=== PATIENT | female | born 1990 | race Caucasian/White ===

== ENCOUNTER 2022-05-14 16:51 | Outpatient (CLI) | payer OTHER, SELFPAY ==
[2022-05-14 17:27] LABS: Hematocrit 38.2 % (37.0-47.0); Hemoglobin 12.8 g/dL (12.0-15.0); Mean Corpuscular HGB Conc 33.5 g/dl (32-36); Mean Corpuscular Hemoglobin 30.9 pg (26-34); Mean Corpuscular Volume 92.3 fl (80-100); Mean Platelet Volume 9.6 fl (7.4-10.4); Platelet Count Result 273 k/mm3 (150-375); Red Blood Count 4.14 M/mm3 (4.2-5.4); Red Cell Distribution Width 12.6 % (11.5-14.5); White Blood Count 8.1 K/mm3 (4.5-10.0)
[2022-05-14 17:40] LABS: Anion Gap 8 mmol/L (8-16); Blood Urea Nitrogen 17 mg/dL (7-17); Calcium 8.5 mg/dL (8.4-10.2); Carbon Dioxide 26 mmol/L (22-30); Chloride 103 mmol/L (98-107); Estimated Glomerular Filt Rate > 60; Glucose 92 mg/dL (65-110); Potassium 3.3 mmol/L (3.4-5.0); Sodium 137 mmol/L (137-145)
[2022-05-14 17:45] LABS: Iron 91 ug/dL (37-170)
[2022-05-14 17:47] LABS: Prealbumin 31.7 mg/dL (17.6-36.0)
== END 2022-05-14 16:52 | disposition home or self-care (01) ==
LOC: ANHLAB 16:52
PROVIDERS: PCP Family Medicine; Visit Provider Surgery Plastic and Reconstructive Surgery
DX: R63.4 Abnormal weight loss (principal)
CPT/HCPCS: 36415; 80048; 82040; 83540; 84134; 84425; 85027

== ENCOUNTER 2022-06-21 01:22 | Day surgery (SDC) | payer OTHER, SELFPAY ==
[2022-06-17 11:04] VITALS: BMI 27.8
--- NOTE | 2022-06-17 11:09 | PC.NURSE ---
Report to the Outpatient Waiting Room, entrance under the green pavilion located off [facility], at time 6:00 on date 06/21/22. Planned Procedure Time: 7:30. Time changes happen often and if your time is changed the preop area will call you the afternoon before. - You and your visitor will be asked to self-screen and do not enter if you have any COVID symptoms. - We encourage only one visitor and NO visitors under age 16 are allowed at this time. Your visitor will receive communication by the phone number that is given day of service. - The patient visitor is requested to social distance or may leave the building when not with patient due to restrictions. - A mask is OPTIONAL within the hospital. Patients may have clear liquids (water, carbonated beverages, clear teas, apple juice) until 3 hours prior to surgery (4:30) with a maximum of 20 ounces. - No food from midnight until time of surgery Take the following medications with a SIP of water the morning of surgery: NONE Medications to discontinue per physician: VITAMINS Date to take last dose: 06/17/22 Please no make-up, nail somali, hairspray, perfume, deodorant, or body powder the day of surgery. No jewelry (including any body piercings) or valuables the day of surgery, leave them at home. Please take a shower or bath the night before, or the morning of, surgery with an antibacterial soap. Wear comfortable, loose fitting clothing. - Jewelry must be removed prior to entering the operating room. Rings and piercings that are not removed may be cut off. - The hospital will not accept responsibility for valuables. - Please leave all valuables, including medications, at home the day of surgery. If you are going home after surgery, a licensed auto crane driver must drive you home. - NO public transportation without another adult. - We recommend that an adult stay with you for 24 hours following discharge. - We also recommend that you do not drive, make important decision, drink alcoholic beverages, or take any drugs that were not prescribed by your health care provider for at least 24 hours after your discharge time. Follow any additional instructions given to you from your surgeon. If you or anyone in your household have experienced Covid symptoms in the past week, please notify your surgeon or the nurse liaison at the phone number below for possible testing. Telephone instructions given to PT - RICH WAYNE and asked if any additional questions and then verbalized understanding. Patient advised to call surgeon office or pre surgery nurse liaison [phone] if any additional questions.
[2022-06-21] VITALS (8 sets, daily range): BP systolic 129–143; BP diastolic 83–96; PULSE 57–101; RESP 12–18; TEMP 36.3–36.6; O2SAT 95–100
[2022-06-21] MEDS: LACTATED RINGERS 1,000 ML 30 ML IV CONT ×3 (06:30→10:38)
--- NOTE | 2022-06-21 06:34 | ECG_ITS ---
Measurements Intervals Talmage Rate: 67 P: 54 ID: 139 QRS: 32 QRSD: 90 T: 18 QT: 421 QTc: 446 Interpretive Statements SINUS RHYTHM WITH SINUS ARRHYTHMIA BASELINE WANDER- I, II NORMAL ECG NO PREVIOUS ECG AVAILABLE FOR COMPARISON Electronically Signed On 06-21-2022 7:06:25 CDT by Meek Plummer D.O.
--- NOTE | 2022-06-21 06:38 | WPDANESEPPF ---
Anes - Initial Pre Proc Eval Procedure: Operation Date: 06/21/22 07:30 Proposed Procedures p Bilateral Breast Augmentation, - Miko Champagne MD s Bilateral Breast Mastopexy, Excision Bilateral Lateral Breast Tissue - Miko Champagne MD Date/Time: 06/21/22 06:38 Surgeon: Miko Champagne MD Pre Op Diagnosis: micromastia, breast ptosis,local adiposity Patient Data Age: 32 Gender: F Height: 1.63 m Weight: 74.65 kg Last Vital Signs Temp 36.6 C 06/21/22 06:16 Pulse 68 06/21/22 06:16 Resp 16 06/21/22 06:16 BP 132/91 H 06/21/22 06:16 Pulse Ox 100 06/21/22 06:16 O2 Del Method Room Air 06/21/22 06:16 Allergies Allergy/AdvReac Type Severity Reaction Status Date / Time Penicillins Allergy Unknown HIVES Verified 06/21/22 06:09 Home Medications Medication Instructions Recorded Confirmed Type multivitamin 1 tablet PO DAILY 06/17/22 06/21/22 History dextroamphetamine-amphetamine ER 20 mg PO DAILY #31 caps 06/18/22 06/21/22 Rx 20 mg 24hr capsule,extend release (Adderall XR) Patient hx anesthesia problems: none Family hx anesthesia problems: none Results Review: All pre-operative results and documents have been reviewed as part of the pre-operative evaluation. [facility] Past Medical History Medical History Smoking 1/2 pack a day or less Surgical History Surgical History (Updated 06/21/22 @ 06:39 by Merrick Ayala MD) Hx of tonsillectomy Family History Family History Father Cerebrovascular accident Hypertension Diabetes mellitus Mother Hypertension Sibling No problems noted. 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 Gender identity (if verbalized by the patient): Female Spiritual care concerns: No Anes - Eval Final PreProcedure Day of Procedure 06/21/22 06:38 Patient weight: overweight Heart: regular rate and rhythm Lungs: clear to auscultation Airway: Mallampati scale class II Neurological: alert and oriented Last oral intake: >/= 8 hours ASA classification: II Emergent: no Anesthetic plan: proceed Anesthesia type and monitoring: general LMA and standard monitoring Results Review: All pre-operative results and documents have been reviewed as part of the pre-operative evaluation. Informed Consent: The patient's anesthetic plan and its attendant risks and benefits were discussed with the patient/family/POA. Questions were solicited and answers provided to the satisfaction of the patient/family/POA.
--- NOTE | 2022-06-21 06:44 | P.OP_ITS ---
Procedure Note - Detailed Date of Procedure 06/21/22 Pre-op Diagnosis micromastia, breast ptosis,local adiposity Post-op Diagnosis Same Procedure Performed Bilateral augmentation mastopexy with lateral breast tissue excision Surgeon Miko Champagne MD Anesthesia General Findings Inverted T Superior medial pedicle Implants Bilateral Martha Kay SoftTouch Implants 485cc Right - REF# [id number] SN [id number] Left - REF# [id number] SN [id number] Description of Procedure She is here today for bilateral breast augmentation mastopexy. Previously and again today the risks, benefits, alternatives were discussed in extensive detail. I wanted her to be very realistic about the risks involved as well as expectations. We discussed aftercare and what to monitor for. Made sure answered all of her questions to her satisfaction today and consent was obtained. Marked in the preoperative holding area with their verification. The patient was taken to the operating room placed supine on the operating table. Anesthesia was provided by anesthesiology. A surgical time-out was taken. We cleansed the skin and 1% lidocaine and 0.25% Marcaine with epinephrine was used anesthetize as a field block. She was prepped and draped in a standard sterile fashion. Tegaderm nipple Navarro were placed. A 15 blade used to make an incision just superior to the inframammary fold leaving a cusp of de-epithelized tissue at the t junction. Dissection was continued until the chest wall as identified. I incised the pectoralis major along its inferior border and completely released the inferior border leaving the medial border intact. I created a subpectoral pocket in the appropriate dimensions based on our preoperative planning for the implant. I then copiously irrigated with saline solution and verified a strict hemostasis. Next the use a triple antibiotic and Betadine containing solution to irrigate the pocket. I washed my gloves with the triple antibiotic and Betadine solution. We washed the implant immediately upon opening it with this solution and only opened it when we needed it. I used implant funnel and no-touch technique. The implant was introduced into the pocket using the funnel. Having verified positioning of the implant this was closed using 2-0 Vicryl. I tailor tacked the breast into position. Placed her in a sitting position. Verified the nipple-areolar location based on preoperative planning as well as intraoperative observations and measurements in full agreement. Also verfied the lateral breast to be excised. She was placed supine. I de-epithelialized the pedicle. I then removed the inferior central portion of the breast need making sure the implant was well protected. I elevated medial and lateral tissue flaps as well for planned closure. Also excised the lateral breast skin laxity. I closed along the IMF with 2-0 Stratafix. Along the vertical with 2-0 PDS. I closed around the Familia with 3-0 strata fix. 3-0 Monocryl along the vertical. 3-0 Stratafix along the IMF. I finally closed everything with running watkins bcuticular 4-0 Monocryl and tissue glue. Fluffs and surgical bra were placed. Estimated Blood Loss 50 Drains No Packing No Pathology None sent Complications No immediate complications Condition Stable Disposition PACU
--- NOTE | 2022-06-21 07:03 | WPDHPUPDATE1 ---
History and Physical Update Update Date/Time: 06/21/22 07:03 History and Physical has been reviewed, including an updated exam of the patient. There are NO changes in the patient's condition. Risks, benefits, and alternatives have been discussed and questions answered. Patient agrees to proceed with procedure.
[2022-06-21] MEDS: SCOPOLAMINE 1.5 MG PATCH TRANSDERM (07:21)
[2022-06-21 07:30] LABS: Urine Cotinine NEGATIVE
[2022-06-21] MEDS: ceFAZolin 2 GM/D5W 50 ML 2 GM/50 ML BAG IVPB (07:39)
[2022-06-21] MEDS: TRANEXAMIC ACID 1,000MG/ISO100 1,000 MG/100 ML BAG 200 MG IVPB (07:49)
[2022-06-21] MEDS: BUPIVACAINE/EPINEPHRINE 0.25% 50 ML VIAL 30 ML INFILTRATE (07:50)
[2022-06-21] MEDS: NACL 0.9% IRRIG POUR BOTTLE 900 ML, GENTAMICIN SULFATE INJ 160 MG, CLINDAMYCIN PHOS INJ... IRRIGATION (08:08)
--- NOTE | 2022-06-21 08:28 | SUR.OPER ---
right breast implant exp 2026-07-30, lot [id number] [facility] 484cc left breast implane exp 2026-10-04, lot [id number] [facility] 485cc
[2022-06-21] MEDS: LACTATED RINGERS IRRIG 1,000 ML, LIDOCAINE HCL 1% LOCAL INJ 50 ML, EPINEPHrine HCL INJ ... INFILTRATE (08:52)
[2022-06-21] MEDS: fentaNYL CITRATE INJ (*CRX) 100 MCG/2 ML VIAL 25 MCG IV PUSH (10:38)
[2022-06-21] MEDS: oxyCODONE HCL (*CRX) 5 MG TAB IR PO (11:32)
== END 2022-06-21 11:35 | disposition home or self-care (01) ==
PROVIDERS: PCP Family Medicine; Visit Provider Surgery Plastic and Reconstructive Surgery
PROC: (CPT 19316; principal; 2022-06-21 07:30)
PROC: (CPT 19316; 2022-06-21 07:30)
DX: Z41.1 Encounter for cosmetic surgery (principal); N64.81 Ptosis of breast; E65 Localized adiposity; F12.90 Cannabis use, unspecified, uncomplicated
CPT/HCPCS: 19316; 19325; 80307; 93005; A9270; J0171; J0690; J1100; J1170; J1580; J2250; J2405; J2704; J3010; J7120

== ENCOUNTER 2024-05-18 08:32 | Outpatient (CLI) | payer OTHER, SELFPAY ==
[2024-05-18 09:25] LABS: Basophils Percent Auto 0.6 % (0.2-1.2); Eosinophils Absolute Auto 0.1 K/mm3 (0-0.3); Eosinophils Percent Auto 1.1 % (0-4.4); Hematocrit 41.4 % (37.0-47.0); Hemoglobin 14.2 g/dL (12.0-15.0); Immature Granulocyte Absolute 0.02 K/mm3 (0.00-0.031); Immature Granulocyte Percent A 0.3 % (0-0.5); Lymphocytes Absolute Auto 1.91 K/mm3 (0.9-3.2); Lymphocytes Percent Auto 26.6 % (18.3-44.2); Mean Corpuscular HGB Conc 34.3 g/dl (32-36); Mean Corpuscular Hemoglobin 31.6 pg (26-34); Mean Corpuscular Volume 92.2 fl (80-100); Mean Platelet Volume 9.6 fl (7.4-10.4); Monocytes Absolute Auto 0.6 K/mm3 (0.1-0.6); Monocytes Percent Auto 8.4 % (2.6-8.5); Neutrophils Absolute Auto 4.5 K/mm3 (1.3-6.7); Platelet Count Result 261 k/mm3 (150-375); Red Blood Count 4.49 M/mm3 (4.2-5.4); Red Cell Distribution Width 11.8 % (11.5-14.5); White Blood Count 7.2 K/mm3 (4.5-10.0)
[2024-05-18 09:35] LABS: Anion Gap 11 mmol/L (4-12); Blood Urea Nitrogen 15 mg/dL (7-17); Carbon Dioxide 27 mmol/L (22-30); Chloride 98 mmol/L (98-107); Estimated Glomerular Filt Rate > 60; Sodium 136 mmol/L (137-145)
[2024-05-18 09:36] LABS: Alanine Aminotransferase 18 U/L (6-35); Albumin Level 4.6 g/dL (3.5-5.1); Alkaline Phosphatase 49 U/L (38-126); Aspartate Amino Transferase 26 U/L (14-36); Calcium 8.8 mg/dL (8.4-10.2); Cholesterol 137 mg/dL (0-200); Glucose 90 mg/dL (65-110); HDL Direct 70 mg/dL; Triglycerides 80 mg/dL (<150)
[2024-05-18 09:46] LABS: LDL Cholesterol Direct 49 mg/dL
[2024-05-18 10:06] LABS: Thyroid Stimulating Hormone 0.965 uIU/mL (0.465-4.680)
[2024-05-18 10:36] LABS: Vitamin D 25 Hydroxy 38.6 ng/mL
== END 2024-05-18 08:33 | disposition home or self-care (01) ==
PROVIDERS: PCP Family Medicine
DX: E55.9 Vitamin D deficiency, unspecified (principal); Z13.0 Encounter for screening for diseases of the blood and blood-forming organs and certain disorders involving the immune mechanism; Z13.1 Encounter for screening for diabetes mellitus; Z13.220 Encounter for screening for lipoid disorders; Z13.29 Encounter for screening for other suspected endocrine disorder
CPT/HCPCS: 36415; 80053; 80061; 82306; 84443; 85025

== ENCOUNTER 2024-06-09 10:21 | Outpatient (CLI) | payer OTHER, SELFPAY ==
[2024-06-09 10:54] LABS: Anion Gap 9 mmol/L (4-12); Blood Urea Nitrogen 16 mg/dL (7-17); Calcium 9.4 mg/dL (8.4-10.2); Carbon Dioxide 26 mmol/L (22-30); Chloride 102 mmol/L (98-107); Estimated Glomerular Filt Rate > 60; Glucose 98 mg/dL (65-110); Potassium 4.4 mmol/L (3.4-5.0); Sodium 137 mmol/L (137-145)
== END 2024-06-09 10:22 | disposition home or self-care (01) ==
LOC: ANHLAB 10:25
PROVIDERS: PCP Family Medicine
DX: E87.6 Hypokalemia (principal)
CPT/HCPCS: 36415; 80048

== ENCOUNTER 2025-02-09 14:32 | Emergency (ER) | payer OTHER, SELFPAY ==
[2025-02-09 14:52] VITALS: BP 182/104; PULSE 61; RESP 18; TEMP 36.7; O2SAT 100
== END 2025-02-09 17:05 | disposition left against medical advice (07) ==
LOC: ANHED 16:39
PROVIDERS: PCP Family Medicine
DX: R10.11 Right upper quadrant pain (principal)
CPT/HCPCS: 99199

== ENCOUNTER 2025-02-17 15:55 | Outpatient (CLI) | payer OTHER, SELFPAY ==
--- OUTSIDE RECORDS SUMMARY | 2025-02-17 15:58 | XMS_ITS | Clinical Summary ---
Author Organization [facility] Address [address] [place] [address] Phone Care Team Providers Care Transitional Studies Instructor Name Role Phone Provider, None Primary Care Provider Unavailabl e Allergies Active Allergy Reactions Criticality Noted Date Comments Penicillins Hives 03/14/2019 Social History Tobacco Use Types Packs/Day Years Used Date Smoking Tobacco: Some Days Cigarettes Smokeless Tobacco: Never Comments Unknown Sex and Gender Information Value Date Recorded Sex Assigned at Not on file Legal Sex Female 9:04 AM CDT Gender Identity Not on file Sexual Orientation Not on file Last Filed Vital Signs Vital Sign Reading Time Taken Comments Blood Pressure 134/85 03/14/2019 9:36 AM CDT Pulse 112 03/14/2019 9:21 AM CDT Temperature 36.5 C (97.7 F) 03/14/2019 9:21 AM CDT Respiratory Rate 18 03/14/2019 9:21 AM CDT Oxygen Saturation 99% 03/14/2019 9:21 AM CDT Inhaled Oxygen Concentration - - Weight 110.6 kg (243 lb 13.3 oz) 03/14/2019 9:10 AM CDT Height 162.6 cm (5' 4) 03/14/2019 9:06 AM CDT Body Mass Index 41.85 03/14/2019 9:06 AM CDT Plan of Treatment Health Maintenance Due Date Last Done Comments Hepatitis C Virus (HCV) Screening 1992 TdaP Immunization 1992 Hepatitis B Immunization (1 of 3 - 19+ 3-dose series) 02/28/2011 Pap Smear 02/28/2013 Cervical Cancer Screening (CCS) 02/28/2022 HPV/Cotest 02/28/2022 Influenza Immunization (#1) 2024 SARS-COV-2 Immunization ( season) 2024 11/21/2020, 10/30/2020 Respiratory Syncytial Virus (RSV) Immunization (Adult) (1 - 1-dose 75+ series) 02/28/2067 Meningococcal Immunization (ACWY) Aged Out No longer eligible b ased on patient's age to complete this topic Pneumococcal Immunization Combined Aged Out No longer eligible b ased on patient's age to complete this topic Rotavirus Immunization Aged Out No lo nger eligible based on patient's age to complete this topic Insurance MEDICAID [employer] Care Teams Transitional Studies Instructor Relationship Specialty Start Date End Date Provider, None [place] PCP - General 03/14/19
--- OUTSIDE RECORDS SUMMARY | 2025-02-17 15:59 | XMS_ITS | Clinical Summary ---
Author Organization [facility] Address [address] [place] [address] Care Team Providers Care Cat Sitter Name Role Phone Marquez Meneses MD Primary Care Provider [phone] Allergies Active Allergy Reactions Criticality Noted Date Comments Penicillins Hives High 05/21/2019 Medications amphetamine-dextr oamphetamine XR (ADDERALL XR) 30 MG 24 hr capsule Take 1 capsule (30 mg total) by mouth every morning. 05/01/20 21 Active metoprolol succinate ER (TOPROL-XL) 25 MG 24 hr tablet Take 1 tablet (25 mg total) by mouth daily. Active traZODone (DESYREL) 50 MG tablet 1 tablet (50 mg total) nightly at bedtime. Active hydrOXYzine (ATARAX) 10 MG tablet Take 1 tablet (10 mg total) by mouth 3 (three) times daily as needed for Anxiety. Active HYDROcodone-aceta minophen (NORCO) 5-325 MG tabletIndications :Acute Pain < 7 Day Supply Take 1 tablet by mouth every 4 (four) hours as needed. Indication s: Acute Pain < 7 Day Supply 15 tablet 02/12/20 25 Active losartan-hydroCHL OROthiazide (HYZAAR) 100-12.5 MG tablet Take 1 tablet by mouth daily. 30 tablet 02/12/20 25 Active NIFEdipine XL (ADALAT CC) 60 MG 24 hr tablet Take 1 tablet (60 mg total) by mouth daily for 30 days. 30 tablet 02/13/20 25 025 Active ondansetron (ZOFRAN-ODT) 4 MG disintegrating tablet Take 1 tablet (4 mg total) by mouth every 8 (eight) hours as needed for Nausea. 20 tablet 03/03/20 22 025 Discontinued losartan (COZAAR) 100 MG tablet Take 1 tablet (100 mg total) by mouth daily. 025 Discontinued(St op Taking at Discharge) meclizine (ANTIVERT) 25 MG tablet Take 2 tablets (50 mg total) by mouth 3 (three) times daily as needed. 20 tablet 01/13/20 25 025 Discontinued diazePAM (VALIUM) 2 MG tabletIndications :Vertigo Take 1 tablet (2 mg total) by mouth every 6 (six) hours as needed for Anxiety. 10 tablet 01/13/20 025 Discontinued NIFEdipine XL (ADALAT CC) 30 MG 24 hr tablet Take 1 tablet (30 mg total) by mouth daily for 30 days. 30 tablet 02/12/20 025 Discontinued(St op Taking at Discharge) Active Problems Problem Noted Date Diagnosed Date Abdominal pain 02/09/2025 Symptomatic cholelithiasis 02/09/2025 HBP (high blood pressure) 08/02/2019 Preeclampsia ([facility]) 07/29/2019 Resolved Problems Problem Noted Date Diagnosed Date Resolved Date (spontaneous vaginal delivery) ([facility]) 9 08/02/2019 ([facility]) 07/28/2019 08/02/20 19 Encounters Date Type Department Care Team Description 02/10/2025 10:08 AM CDT Anesthesia Event [facility] [address] [place] [address] Sarah Alfaro CRNA Rani, Swaroop, MD 02/10/2025 10:00 AM CDT - 02/10/2025 12:15 PM CDT Surgery [facility] [address] [place] [address] Kyrie Dunbar DO LAPAROSCOPIC CHOLECYSTECTOMY 02/09/2025 5:01 PM CDT - 02/11/2025 4:01 PM CDT Hospital Encounter [facility] [address] [place] [address] Dunbar, Sharla C, MD Diane Pressley MD Harris, Michael, MD Helmholt, Jennifer, NP Abdominal Pain Discharge Disposition: Home or Self Care (Routine Discharge) 02/09/2025 Travel 01/12/2025 4:53 PM CDT - 01/12/2025 7:48 PM CDT Emergency [facility] Emergency Room [address] [place] [address] Maya Batres MD Hypertension Discharge Disposition: Home or Self Care (Routine Discharge) from Last 3 Months Immunizations Immunization Administration Dates Next Due Influenza Adult (Generic) 06/07/2019 Tdap (Generic) 06/14/2019 Family History Medical History Relation Comments None Brother Hypertension Father Stroke Father Hypertension Mother None Son Relation Status Comments Brother Alive Father Alive Mother Alive Son Alive Social History Tobacco Use Types Packs/Day Years Used Date Smoking Tobacco: Former Electronic Cigarettes Quit: 03/2019 Smokeless Tobacco: Never Tobacco Cessation:Counseling Given: Yes Alcohol Use Standard Drinks/Week Comments No 0 (1 standard drink = 0.6 oz pur e alcohol) [facility] Utilities Answer Date Recorded In the past 12 months has e [email or web address], gas, oil, or water [employer] threatened to shut off services in your home? No 02/09/2025 Humiliation, Afraid, Rape, and Kick questionnair e Answer Date Recorded Within the last year, have y ou been afraid of your partner or ex-partner? No 02/09/2025 Within the last year, have y ou been humiliated or emotionally abused in other ways by your partner or ex-partner? No Within the last year, have y ou been kicked, hit, slapped, or otherwise physically hurt by your partner or ex-partner? No 02/09/2025 Within the last year, have y ou been raped or forced to have any kind of sexual activity by your partner or ex-partner? No 02/09/2025 AUDIT-C Answer Date Recorded Q1: How often do you have a drink containing alcohol? 4 or more times a week 02/09/2025 Q2: How many drinks containi ng alcohol do you have on a typical day when you are drinking? 1 or 2 Frequency of Binge Drinking Not on file 01/17 Overall Financial Resource Strain (CARDIA) Answe r Date Recorded How hard is it for you to pa y for the very basics like food, housing, medical care, and heating? Not hard at all 02/09/2025 Hunger Vital Sign Answer Date Recorded Within the past 12 months, y ou worried that your food would run out before you got the money to buy more. Never true 02/10/20 Within the past 12 months, t he food you bought just didn't last and you didn't have money to get more. Never true 02/09/2025 PRAPARE - Transportation Answer Date Re corded In the past 12 months, has l ack of transportation kept you from medical appointments or from getting medications? No 01/17 In the past 12 months, has l ack of transportation kept you from meetings, work, or from getting things needed for daily living? No 02/09/2025 Housing Stability Vital Sign Answer Zaheer e Recorded In the last 12 months, was t here a time when you were not able to pay the mortgage or rent on time? No 02/09/2025 In the past 12 months, how m any times have you moved where you were living? 1 02/09/2025 At any time in the past 12 m [facility], were you homeless or living in a snf (including now)? No 02/09/2025 Comments No Sex and Gender Information Value Date Recorded Sex Assigned at Female 01/12/2025 4:51 PM CDT Legal Sex Female 8:08 PM CDT Gender Identity Not on file Sexual Orientation Not on file Travel History Travel Start Travel End [place] 01/25/2025 02/09/2025 Last Filed Vital Signs Vital Sign Reading Time Taken Comments Blood Pressure 137/90 02/11/2025 2:40 PM CDT RN notified Pulse 73 02/11/2025 7:16 AM CDT Temperature 36.2 C (97.2 F) 02/11/2025 7:16 AM CDT Respiratory Rate 18 02/11/2025 7:16 AM CDT Oxygen Saturation 100% 02/11/2025 7:1 6 AM CDT Inhaled Oxygen Concentration - - Weight 72.6 kg (160 lb 0.9 oz) 02/11/20 5:00 AM CDT Height 162.6 cm (5' 4) 02/09/2025 8:32 PM CDT Body Mass Index 27.47 02/09/2025 8:32 PM CDT Plan of Treatment Upcoming Encounters Date Type Department Care Team (Late st Contact Info) Description 03/03/2025 11:45 AM CDT Office Visit [facility] [address], [address] [place] [address] Kyrie Dunbar, DO [facility] [address] [address] Health Maintenance Due Date Last Done Comments Cervical Cancer Screening Pa p Smear (Age 30 to 64) Every 3 Years 1992 Annual Physical 02/28/1995 Hepatitis C 02/28/2010 Hepatitis B Vaccines (1 of 3 - 19+ 3-dose series) 02/28/2011 Cervical Cancer Screening Pa p with HPV Testing (Age 30 to 64) Every 5 Years 02/28/2022 Cervical Cancer Screening with HPV 02/28/2022 COVID-19 Vaccine (1 - 2023-2 5 season) 2024 DTaP, Tdap and Td Vaccines ( 2 - Td or Tdap) 06/14/2029 06/14/2019 HPV Vaccines Aged Out No longer eligi ble based on patient's age to complete this topic Meningococcal B Vaccine Aged Out No l onger eligible based on patient's age to complete this topic Meningococcal Vaccine Aged Out No gurwinder tara eligible based on patient's age to complete this topic Pneumococcal Vaccine: Pediat rics (0 to 5 Years) and At-Risk Patients (6 to 49 Years) Aged Out No longer eligi ble based on patient's age to complete this topic RSV Immunizations Under 20 Months Aged Out No longer eligible based on patient's age to complete this topic Goals Goal Patient Goal Type Associated Problems Recent Progress Patient-Stated? Author Patient will return to prior living situation and remain independent in ADLs upon discharge from hospital Lifestyle No Estella Ramirez, awake overnight counselor Procedure Name Priority Date/Time Associated Diagnosis Comments POTASSIUM, SERUM TIMED 02/11/2025 1:16 PM CDT MAGNESIUM Routine 02/11/2025 5:15 AM CDT COMPREHENSIVE METABOLIC PANEL Routine 02/11/2025 5:15 AM CDT CBC W/DIFF AUTOMATED Routine 02/11/2025 5:15 AM CDT LAPAROSCOPIC CHOLECYSTECTOMY 02/10/2025 10:07 AM CDT Symptomatic cholelithiasis HEMOGLOBIN, GLYCOSYLATED Routine 02/10/2025 5:14 AM CDT LIPID PANEL Routine 02/10/2025 5:14 AM CDT THYROID STIM HORMONE TSH Routine 02/10/2025 5:14 AM CDT MAGNESIUM Routine 02/10/2025 5:14 AM CDT COMPREHENSIVE METABOLIC PANEL Routine 02/10/2025 5:14 AM CDT PARTIAL THROMBOPLASTIN TIME,PTT Routine 02/10/2025 5:14 AM CDT PROTHROMBIN TIME, VENOUS Routine 02/10/2025 5:14 AM CDT CBC W/DIFF AUTOMATED Routine 02/10/2025 5:14 AM CDT PATHOLOGY Routine 02/10/2025 12:[address] ABD+PEL W CON STAT 02/09/2025 6:23 PM CDT TEST URINE STAT 02/09/2025 5:22 PM CDT URINALYSIS, AUTO, COMPLETE STAT 02/09/2025 5:22 PM CDT LIPASE STAT 02/09/2025 5:10 PM CDT COMPREHENSIVE METABOLIC PANEL STAT 02/09/2025 5:10 PM CDT CBC W/DIFF AUTOMATED STAT 02/09/2025 5:10 PM CDT CTA HEAD+NECK STAT 01/12/2025 6:[address] HEAD WO CON STAT 01/12/2025 6:40 PM CDT URINALYSIS, AUTO, COMPLETE STAT 01/12/2025 5:41 PM CDT PRO-BRAIN NATRIURETIC PEPTIDE STAT 01/12/2025 5:25 PM CDT TROPONIN, QUANT STAT 01/12/2025 5:25 PM CDT COMPREHENSIVE METABOLIC PANEL STAT 01/12/2025 5:25 PM CDT CBC W/DIFF AUTOMATED STAT 01/12/2025 5:25 PM CDT ECG 12-LEAD Routine 01/12/2025 5:06 PM CDT from Last 3 Months Results * POTASSIUM, SERUM (02/11/2025 1:16 PM CDT) Pathologist [facility] POTASSIUM S/P/B 3.9 3.5 - 5.1 MMOL/L 02/11/2025 1:34 PM CDT [facility] 02/11/2025 1:16 PM CDT Sharla Nation [facility] Final Resul t [facility] [address] [place] [address], [place] [phone] * (ABNORMAL) COMPREHENSIVE METABOLIC PANEL (02/11/2025 5:15 AM CDT) Only the most recent of4 resultswithin the time period is included. GLUCOSE 105(H) 70 - 99 MG/DL 02/11/2025 7:19 AM [facility] BUN 6(L) 7 - 18 MG/DL 02/11/2025 7:19 AM [facility] CREATININE S/P/B 0.62 0.55 - 1.02 MG/DL 02/11/2025 7:19 AM [facility] SODIUM S/P/B 130(L) 136 - 145 MMOL/L 02/11/2025 7:19 AM [facility] POTASSIUM S/P/B 3.0(LL) 3.5 - 5.1 MMOL/L 02/11/2025 7:19 AM [facility] Comment: Critical Result(s) Called at: 07:17:46 on 02/11/2025 by: Jess Cagle to and read back by:DONOVAN BENZ CHLORIDE S/P/B 95(L) 100 - 108 MMOL/L 02/11/2025 7:19 AM [facility] CO2 25.9 21 - 32 MMOL/L 02/11/2025 7:19 AM [facility] CALCIUM S/P/B 8.9 8.5 - 10.1 MG/DL 02/11/2025 7:19 AM [facility] BILIRUBIN TOTAL S/P/B 1.0 0.2 - 1.2 MG/DL 02/11/2025 7:19 AM [facility] TOTAL PROTEIN S/P/B 7.2 6.4 - 8.2 G/DL 02/11/2025 7:19 AM [facility] ALBUMIN S/P/B 4.1 3.4 - 5.0 G/DL 02/11/2025 7:19 AM [facility] AST 45(H) 15 - 37 U/L 02/11/2025 7:19 AM [facility] ALT 66(H) 14 - 55 U/L 02/11/2025 7:19 AM CDT [facility] ALKALINE PHOSPHATASE S/P/B 55 50 - 136 U/L 02/11/2025 7:19 AM CDT [facility] ANION GAP 9.1 5 - 15 MMOL/L 02/11/2025 7:19 AM T [facility] BUN CREATININE RATIO 9.7 6 - 26 02/11/2025 7:19 AM T [facility] A/G RATIO 1.3 1.0 - 2.0 RATIO 02/11/2025 7:19 AM T [facility] GFR ESTIMATE >90 >90 ML/MIN/1.7 3 M2 02/11/2025 7:19 AM T [facility] Comment: NOTE: eGFR is not calculated for patients <18 years of age. This is an estimated GFR calculation using the new CKD EPI creatinine equation without race and so does not require a correction factor for race. This estimated GFR should not be used for calculating drug doses. 02/11/2025 5:15 AM CDT Kyrie Dunbar DO LABORATORY Final Result [facility] [address] [place] [address], * (ABNORMAL) CBC W/DIFF AUTOMATED (02/11/2025 5:15 AM CDT) Only the most recent of4 resultswithin the time period is included. WBC 10.15 4.4 - 11.0 x10'3/uL 02/11/2025 6:41 AM CDT [facility] RBC 4.50 4.50 - 5.10 x10'6/uL 02/11/2025 6:41 AM CDT [facility] HGB 14.3 12.3 - 15.3 G/DL 02/11/2025 6:41 AM T [facility] HCT 40.5 35.9 - 44.6 % 02/11/2025 6:41 AM T [facility] MCV 90.0 80.0 - 96.0 FL 02/11/2025 6:41 AM T [facility] MCH 31.8(H) 25.3 - 30.9 PG 02/11/2025 6:41 AM T [facility] MCHC 35.3(H) 31.0 - 34.1 G/DL 02/11/2025 6:41 AM T [facility] RDW 11.7(L) 12.4 - 15.1 % 02/11/2025 6:41 AM [facility] PLT 239 151 - 353 x10'3/uL 02/11/2025 6:41 AM [facility] MPV 9.7 9.6 - 12.0 FL 02/11/2025 6:41 AM T [facility] RBC MORPHOLOGY NORMAL 02/11/2025 6:41 AM [facility] PLT MORPH. NORMAL 02/11/2025 6:41 AM [facility] WBC MORPHOLOGY NORMAL 02/11/2025 6:41 AM T [facility] LYMPHOCYTES % 24.6 15.8 - 45.0 % 02/11/2025 6:41 AM T [facility] NEUTROPHILS % 64.4 42.1 - 71.9 % 02/11/2025 6:41 AM T [facility] MONOCYTES % 10.2 5.7 - 12.5 % 02/11/2025 6:41 AM T [facility] EOSINOPHILS 0.2 0.0 - 5.6 % 02/11/2025 6:41 AM CDT [facility] BASOPHILS 0.2 0.0 - 1.3 % 02/11/2025 6:41 AM CDT [facility] ABS. NEUTROPHILS 6.53(H) 1.40 - 6.00 x10'3/uL 02/11/2025 6:41 AM CDT [facility] IMMATURE GRANS % 0.4 0.0 - 0.5 % 02/11/2025 6:41 AM CDT [facility] ABS. LYMPHOCYTES 2.50 0.80 - 4.70 x10'3/uL 02/11/2025 6:41 AM CDT [facility] 02/11/2025 5:15 AM CDT us Kyrie Dunbar DO LABORATORY Final Result Performing Organization Address City/[facility]/ZIP Co de Phone Number [facility] [address] [place] [address], [place] [phone] * MAGNESIUM (02/11/2025 5:15 AM CDT) Only the most recent of2 resultswithin the time period is included. MAGNESIUM 1.8 1.8 - 2.4 MG/DL 02/11/2025 7:19 AM CDT [facility] 02/11/2025 5:15 AM CDT Kyrie Dunbar DO LABORATORY Final Result [facility] [address] [place] [address], [place] [phone] * HEMOGLOBIN, GLYCATED (02/10/2025 5:14 AM CDT) HGB A1C 5.1 <5.7 % 02/10/2025 6:39 AM CDT [facility] Comment: INCREASED RISK OF DIABETES <5.7% NON-DIABETES 5.7-6.4% INCREASED RISK FOR FUTURE DIABETES > OR = 6.5 CONSISTENT WITH DIABETES STANDARDS OF MEDICAL CARE IN DIABETES-2010 DIABETES CARE, 33(SUPP 1): S1-S61,2009 ESTIMATED AVG GLUCOSE 100 mg/dL 02/10/2025 6:39 AM CDT [facility] 02/10/2025 5:14 AM CDT us Diane Pressley MD LABORATORY Final Result [facility] [address] [place] [address], [place] [phone] * PARTIAL THROMBOPLASTIN TIME,PTT (02/10/2025 5:14 AM CDT) PTT 34.7 25.1 - 36.5 SEC 02/10/2025 6:07 AM CDT [facility] 02/10/2025 5:14 AM CDT us Diane Pressley MD LABORATORY Final Result Performing Organization Address City/[facility]/ZIP Co de Phone Number [facility] [address] [place] [address], [place] [phone] * (ABNORMAL) PROTHROMBIN TIME, VENOUS (02/10/2025 5:14 AM CDT) PROTIME 13.3(H) 9.1 - 12.4 SEC 02/10/2025 6:07 AM CDT [facility] INR 1.2 02/10/2025 6:07 AM CDT [facility] Comment: Recommend INR ranges for Oral Anticoagulant Therapy: Mechanical Cardiac Values 2.5-3.5 All others indication 2.0-3.0 02/10/2025 5:14 AM CDT Diane Pressley MD LABORATORY Final Result [facility] [address] [place] [address], [place] [phone] * LIPID PANEL (02/10/2025 5:14 AM CDT) CHOLESTEROL 118 <200.0 MG/DL 02/10/2025 6:35 AM CDT [facility] TRIGLYCERIDES 70 <150 MG/DL 02/10/2025 6:35 AM CDT [facility] HDL 55 >40.0 MG/DL 02/10/2025 6:35 AM T [facility] LDL (CALCULATED) 49 <100 MG/DL 02/11/20 6:35 AM T [facility] Comment:CALCULATED USING THE FRIEDEWALD EQUATION NON HDL CHOLESTEROL 63 <130 MG/DL 02/10 6:35 AM T [facility] CHOL/HDL RATIO 2.1 0.0 - 4.5 02/10/2025 6:35 AM T [facility] VLDL CALCULATION 14 5 - 55 MG/DL 02/10/2025 6:35 AM T [facility] LIPID INTERPRETATION 02/10/2025 6:35 AM T [facility] Comment: [facility] CONCENSUS REPORT RECOMMENDATIONS: ADULT CHILD LOW RISK: CHOLESTEROL <200 <170 TRIGLYCERIDE <150 --- HDL >=60 --- LDL <100 <110 BORDERLINE: CHOLESTEROL 200-239 170-199 TRIGLYCERIDE 150-199 --- HDL 40-59 --- LDL 100-159 110-129 HIGH RISK: CHOLESTEROL >=240 >=200 TRIGLYCERIDE >=200 --- HDL <40 --- LDL >=160 >=130 02/10/2025 5:14 AM CDT Diane Pressley MD LABORATORY Final Result [facility] [address] [place] [address], [place] [phone] * THYROID STIM HORMONE, TSH (02/10/2025 5:14 AM CDT) TSH 2.428 0.358 - 3.74 uIU/ML 02/10/2025 7:05 AM CDT [facility] Comment: HIGH DOSES OF BIOTIN MAY INTERFERE WITH THIS TEST RESULT. CORRELATION TO CLINICAL HISTORY AND PRESENTATION RECOMMENDED. 02/10/2025 5:14 AM CDT Diane Pressley MD LABORATORY Final Result Performing Organization Address City/[facility]/ZIP Co de Phone Number [facility] [address] [place] [address], [place] [phone] * Pathology (02/10/2025 12:00 AM CDT) PATHOLOGY [facility] Department of Laboratory Medicine [address] [place] [address] , extension [phone] Pathology Report Surgical Pathology Report Name: MARY WAYNE Specimen #: [id number] Age: 7 1990 (Age: 34) Location: [id number] Sex: F Procedure Date: 02/10/2025 Hospital #: [id number] Date Received: 02/11/2025 Date Reported: 02/14/2025 Provider: SHARLA NATION [facility] Source: Gallbladder Clinical History: Symptomatic cholelithiasis. FINAL DIAGNOSIS: Gallbladder, cholecystectomy: - Chronic cholecystitis. - Cholelithiasis. Gross Description: Received in formalin, labeled with a patient label and as gallbladder is a 11.0 x 2.5 x 2.0 cm gallbladder with a green-cervantes serosa. The cystic duct has a diameter of 0.2 cm and does not appear patent. It is contorted and there is a multifaceted brown stone that is 0.8 cm lodged at the base. The gallbladder is opened to reveal dark green material and multiple multifaceted brown stones that are 4.0 x 4.0 x 2.0 cm in aggregate. The gallbladder is lined by a patchy flattened green-brown mucosa that exhibits the indentation fenton that are consistent with the shape and size of the stones. No mass lesions or polyps are grossly identified. On cut section the gallbladder wall has a thickness of 0.2 cm. [employer] tissue to include the cystic duct margin is submitted in cassette 1. Gross examination (when applicable), interpretation, and sign out were performed at [facility], [address] [place] [address], [place] [address]. Electronically Signed Out DIAZ PLASCENCIA MD [facility] TISSUE GALLBLADDER STRUCTURE / Unknown 02/10/2025 10:31 AM CDT us Kyrie Dunbar DO PATHOLOGY/CYTOLOGY ORDERABLES Final Result [facility] [address] [place] [address], [id number] * CT ABD+PEL W IV CON ONLY (02/09/2025 6:23 PM CDT) Anatomical Region Laterality Modality Abdomen Computed Tomogra phy 02/09/2025 6:28 PM CDT Impressions 02/09/2025 6:38 PM CDT IMPRESSION: 1. No evidence of appendicitis or other acute GI tract abnormality identified. 2. Cholelithiasis without evidence of cholecystitis. 3. Mild bile duct dilatation, nonspecific. Referred By: Interpreted By: Christopher Harman MD, 02/09/2025 6:28 PM Narrative 02/09/2025 6:38 PM CDT [facility] [address] [place] [address] EXAMINATION: CT ABD+PEL W CON CLINICAL HISTORY: Abdominal pain COMPARISON: None DATE/TIME: 02/09/2025 6:20 PM TECHNIQUE: Multiplanar CT images of the abdomen and pelvis were obtained. IV contrast: uneventful intravenous administration of 75 mL Isovue 370. Oral contrast: None. A dose lowering technique was used for this procedure, which may include, but is not limited to, dose reduction technique, automated exposure control, the use of iterative reconstruction, and ALARA (As Low As Reasonably Achievable) / Image Gently techniques. FINDINGS: Calcified granuloma, right lower lobe. Focal fatty infiltration along thousand 4 ligament. Liver is mildly enlarged. Liver is otherwise negative. There is cholelithiasis with gallbladder full of numerous stones. No collateral wall thickening or surrounding inflammatory change. Mild dilatation of the common bile duct at 7 mm. There is mild intrahepatic ductal dilatation as well. Correlation with serum bilirubin and liver fashion tests, if there is concern for choledocholithiasis or other obstructive process could consider MRCP or ERCP. Pancreatic duct is within normal size limits. Pancreas is negative. Spleen is negative. Small calcified lymph node Adrenal glands are negative. Kidneys are negative. Abdominal aorta is normal caliber. Bladder is unremarkable. There is an IUD which appears appropriately positioned. No adnexal mass. No free air or fluid. No bowel obstruction or bowel wall thickening. Normal appendix. Stomach and duodenum appear within normal limits. No acute osseous abnormality. Mild lumbar degenerative changes. Procedure Note Christopher Harman MD - 02/09/2025 [place] [id number] [facility]. [place] [id number] EXAMINATION: CT ABD+PEL W CON CLINICAL HISTORY: Abdominal pain COMPARISON: None DATE/TIME: 02/09/2025 6:20 PM TECHNIQUE: Multiplanar CT images of the abdomen and pelvis were obtained.IV contrast: uneventful intravenous administration of 75 mL Isovue 370.Oral contrast: None. A dose lowering technique was used for this procedure, which may include,but is not limited to, dose reduction technique, automated exposurecontrol, the use of iterative reconstruction, and ALARA (As Low AsReasonably Achievable) / Image Gently techniques. FINDINGS: Calcified granuloma, right lower lobe. Focal fatty infiltrationalong thousand 4 ligament. Liver is mildly enlarged. Liver is otherwisenegative. There is cholelithiasis with gallbladder full of numerousstones. No collateral wall thickening or surrounding inflammatory change.Mild dilatation of the common bile duct at 7 mm. There is mildintrahepatic ductal dilatation as well. Correlation with serum bilirubinand liver fashion tests, if there is concern for choledocholithiasis orother obstructive process could consider MRCP or ERCP. Pancreatic duct iswithin normal size limits. Pancreas is negative. Spleen is negative.Small calcified lymph node Adrenal glands are negative. Kidneys are negative. Abdominal aorta isnormal caliber. Bladder is unremarkable. There is an IUD which appearsappropriately positioned. No adnexal mass. No free air or fluid. No bowel obstruction or bowel wall thickening.Normal appendix. Stomach and duodenum appear within normal limits. Noacute osseous abnormality. Mild lumbar degenerative changes. IMPRESSION: 1. No evidence of appendicitis or other acute GI tract abnormalityidentified. 2. Cholelithiasis without evidence of cholecystitis. 3. Mild bile duct dilatation, nonspecific. Referred By: Interpreted By: Christopher Harman MD, 02/09/2025 6:28 PM Sharla Dunbar MD CT Final Result * TEST URINE (02/09/2025 5:22 PM CDT) URINE HCG TEST NEGATIVE NEGATIVE 02/09/2025 5:44 PM CDT [facility] Comment: VERY DILUTE URINE SPECIMENS MAY NOT CONTAIN REMOTE SENSING TECHNOLOGIST LEVELS OF HCG. IF IS STILL SUSPECTED, A SERUM HCG TEST IS RECOMMENDED. URINE SPECIMEN FROM URETHRA / Unknown 02/09/2025 5:22 PM CDT Sharla Dunbar MD URINE ORDERABLES Final Resul t [facility] [address] [place] [address], [place] [phone] * (ABNORMAL) URINALYSIS, AUTO, COMPLETE (02/09/2025 5:22 PM CDT) Only the most recent of2 resultswithin the time period is included. COLOR (U) YELLOW 02/09/2025 5:53 PM CDT [facility] TRANSPARENCY CLEAR 02/09/2025 5:53 PM CDT [facility] SPECIFIC GRAVITY (U) 1.020 1.000 - 1.030 02/09/2025 5:53 PM CDT [facility] U PH 8.0 5.0 - 9.0 02/09/2025 5:53 PM CDT [facility] LEUKOCYTES (U) NEGATIVE NEGATIVE 02/09/2025 5:53 PM CDT [facility] NITRITES NEGATIVE NEGATIVE 02/09/2025 5:53 PM CDT [facility] PROTEIN RANDOM (U) NEGATIVE NEGATIVE 02/09/2025 5:53 PM T [facility] GLUCOSE (U) NEGATIVE NEGATIVE 02/09/2025 5:53 PM CDT [facility] KETONES MG/DL (U) 1+(A) NEGATIVE 02/09/2025 5:53 PM T [facility] BILIRUBIN (U) NEGATIVE NEGATIVE 02/09/2025 5:53 PM T [facility] BLOOD (U) TRACE(A) NEGATIVE 02/09/2025 5:53 PM T [facility] WBC/HPF NONE SEEN 0 - 5 /HPF 02/09/2025 5:53 PM CDT [facility] RBC/HPF 0-5 0 - 5 /HPF 02/09/2025 5:53 PM T [facility] EPI/HPF FEW /HPF 02/09/2025 5:53 PM T [facility] URINE SPECIMEN OBTAINED BY CLEAN CATCH PROCEDURE / Unknown 02/09/2025 5:22 PM CDT Sharla Dunbar MD URINE ORDERABLES Final Resul t Performing Organization Address City/[facility]/ZIP Co de Phone Number [facility] [address] [place] [address], [place] [phone] * LIPASE (02/09/2025 5:10 PM CDT) LIPASE 30 16 - 77 UNITS/L 02/09/2025 5:57 PM CDT [facility] 02/09/2025 5:10 PM CDT Sharla Dunbar MD LABORATORY Final Result Performing Organization Address [facility] Co de Phone Number [facility] [address] [place] [address], [place] [phone] * CTA HEAD+NECK (01/12/2025 6:40 PM CDT) Anatomical Region Laterality Modality Head, Neck Computed Tomogra phy 01/12/2025 7:03 PM CDT Impressions 01/12/2025 7:09 PM CDT IMPRESSION: No acute findings. Referred By: Interpreted By: Christopher Harman MD, 01/12/2025 7:03 PM Narrative 01/12/2025 7:09 PM CDT [address] [place] [address] INDICATION: Vertigo, blurry vision EXAMINATION: CTA HEAD+NECK TECHNIQUE: CT angiography of the head and neck was performed after uneventful intravenous injection of 80mL Isovue 370. Stenoses are graded using NASCET criteria. 3D Post-processed images were reconstructed on an independent workstation. A radiation dose lowering technique was used for this procedure, which may include, but is not limited to, dose reduction technique, automated exposure control, the use of iterative reconstruction, ALARA (As Low As Reasonably Achievable) techniques, and Image Gently techniques. DATE/TIME: 01/12/2025 6:40 PM COMPARISON: Head CT, same date FINDINGS: NECK: Bovine aortic arch anatomy, anatomic variant. No significant stenosis identified in the aorta great vessel origins. No significant stenosis in either common or internal carotid artery. No significant stenosis in either vertebral artery. No evidence of arterial dissection. Posterior circulation is codominant. HEAD: Basilar artery is patent. Intracranial ICA segments are patent. No definite stenosis identified in the major proximal portions of the anterior, middle or posterior cerebral arteries. No intracranial aneurysm identified. Procedure Note Christopher Harman MD - 01/12/2025 [facility] [address] [facility] [place] [address] INDICATION: Vertigo, blurry vision EXAMINATION: CTA HEAD+NECK TECHNIQUE: CT angiography of the head and neck was performed after uneventfulintravenous injection of 80mL Isovue 370. Stenoses are graded using NASCETcriteria. 3D Post-processed images were reconstructed on an independentworkstation. A radiation dose lowering technique was used for thisprocedure, which may include, but is not limited to, dose reductiontechnique, automated exposure control, the use of iterativereconstruction, ALARA (As Low As Reasonably Achievable) techniques, andImage Gently techniques. DATE/TIME: 01/12/2025 6:40 PM COMPARISON: Head CT, same date FINDINGS: NECK: Bovine aortic arch anatomy, anatomic variant. No significant stenosisidentified in the aorta great vessel origins. No significant stenosis ineither common or internal carotid artery. No significant stenosis ineither vertebral artery. No evidence of arterial dissection. Posteriorcirculation is codominant. HEAD: Basilar artery is patent. Intracranial ICA segments are patent. Nodefinite stenosis identified in the major proximal portions of theanterior, middle or posterior cerebral arteries. No intracranial aneurysmidentified. IMPRESSION: No acute findings. Referred By: Interpreted By: Christopher Harman MD, 01/12/2025 7:03 PM Maya Batres MD CT Final Result * CT HEAD WO CON (01/12/2025 6:40 PM CDT) Anatomical Region Laterality Modality Head Computed Tomogra phy 01/12/2025 6:54 PM CDT Impressions 01/12/2025 7:02 PM CDT IMPRESSION: 1. No definite CT evidence for acute intracranial abnormality. 2. Sinus disease as above. Please note that CT has limited sensitivity for the detection of acute ischemia. Referred By: Interpreted By: Christopher Harman MD, 01/12/2025 6:54 PM Narrative 01/12/2025 7:02 PM CDT [facility] [address] [place] [address] EXAMINATION: CT of the head CLINICAL HISTORY: Headache, dizziness, blurry vision COMPARISON: None TECHNIQUE: CT examination of the head without contrast was performed with axial images obtained. A radiation dose lowering technique was used for this procedure, which may include, but is not limited to, dose reduction technique, automated exposure control, the use of iterative reconstruction, ALARA (As Low As Reasonably Achievable) techniques, and Image Gently techniques. FINDINGS: There is no evidence of acute intracranial hemorrhage, abnormal extra-axial collections, intracranial mass effect, or midline shift. The ventricles and extra-axial/subarachnoid spaces are unremarkable. There is no definite CT evidence to suggest acute territorial infarction. The calvarium is unremarkable without evidence of acute fracture. There is fluid in both maxillary sinuses as well as the right frontal sinus. Acute sinusitis is possible, correlate clinically. 2 small cortical dural calcifications. The visualized mastoid air cells, paranasal sinuses, and orbits are otherwise grossly unremarkable. Procedure Note Christopher Harman MD - 01/12/2025 [facility] [address] [place] [id number] EXAMINATION: CT of the head CLINICAL HISTORY: Headache, dizziness, blurry vision COMPARISON: None TECHNIQUE: CT examination of the head without contrast was performed withaxial images obtained. A radiation dose lowering technique was used forthis procedure, which may include, but is not limited to, dose reductiontechnique, automated exposure control, the use of iterativereconstruction, ALARA (As Low As Reasonably Achievable) techniques, andImage Gently techniques. FINDINGS: There is no evidence of acute intracranial hemorrhage, abnormalextra-axial collections, intracranial mass effect, or midline shift. Theventricles and extra-axial/subarachnoid spaces are unremarkable. There isno definite CT evidence to suggest acute territorial infarction. Thecalvarium is unremarkable without evidence of acute fracture. There isfluid in both maxillary sinuses as well as the right frontal sinus. Acutesinusitis is possible, correlate clinically. 2 small cortical duralcalcifications. The visualized mastoid air cells, paranasal sinuses, andorbits are otherwise grossly unremarkable. IMPRESSION: 1. No definite CT evidence for acute intracranial abnormality. 2. Sinus disease as above. Please note that CT has limited sensitivity for the detection of acuteischemia. Referred By: Interpreted By: Christopher Harman MD, 01/12/2025 6:54 PM us Maya Batres MD CT Final Result * PRO-BRAIN NATRIURETIC PEPTIDE (01/12/2025 5:25 PM CDT) PRO-B TYPE NATRIURETIC PEPTIDE 23 <125 PG/ML 01/12/2025 5:53 PM CDT [facility] Comment: CUT POINTS ESTABLISHED BY [employer] ON NT PROBNP (ICON) STUDY (2006). AGE INDEPENDENT: <300 PG/ML HAS A 99% NEGATIVE PREDICTIVE VALUE FOR EXCLUDING ACUTE CHF <50 YEARS: >450 PG/ML IS CONSISTENT WITH ACUTE CHF 50-75 YEARS: >900 PG/ML IS CONSISTENT WITH ACUTE CHF >75 YEARS: >1800 PG/ML IS CONSISTENT WITH ACUTE CHF IN PATIENTS WITH RENAL INSUFFICIENCY (GFR <60), >1200 PG/ML YIELDS A DIAGNOSTIC SENSITIVITY AND SPECIFICITY OF 89% AND 72% FOR ACUTE CHF. 01/12/2025 5:25 PM CDT us Maya Batres MD LABORATORY Final Result [facility] [address] [place] [address], [place] [phone] * TROPONIN, QUANT (01/12/2025 5:25 PM CDT) TROPONIN I HIGH SENSITIVITY <4 0 - 50 ng/L 01/12/2025 5:52 PM CDT [facility] Comment: HIGH DOSES OF BIOTIN, TROPONIN-SPECIFIC AUTOANTIBODIES, AND ANTIBODY THERAPY CONTAINING HAMA MAY INTERFERE WITH THIS TEST RESULT. CORRELATION TO CLINICAL HISTORY AND PRESENTATION RECOMMENDED. 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1990 Requested By: MAYA BATRES Order Number: [id number] Reading MD: Zane Dougherty Measurements Intervals [place] Rate: 87 P: 74 UT: 146 QRS: 52 QRSD: 90 T: 57 QT: 373 QTc: 449 Interpretive Statements SINUS RHYTHM No previous ECG available for comparison Procedure Note Zane Dougherty MD - 01/13/2025 [facility] Test Date: 2025-01-12 Pat Name: MARY WAYNE Department: 85 Room: EXAM 202 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: Female 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1990 Requested By: MAYA BATRES Order Number: [id number] Reading MD: Zane Dougherty Measurements Intervals [place] Rate: 87 P: 74 UT: 146 QRS: 52 QRSD: 90 T: 57 QT: 373 QTc: 449 Interpretive Statements SINUS RHYTHM No previous ECG available for comparison us Maya Batres MD ECG ORDERABLES Final Result Performing Organization Address City/State/[facility] Co de Phone Number [facility] RAD from Last 3 Months Insurance Advance Directives * Full Code (Latest Code Status on File) Date Activated Date Inactivated Comments 02/09/2025 8:27 PM 02/11/2025 6:07 PM * Full Code Date Activated Date Inactivated Comments 07/28/2019 3:43 PM 07/31/2019 5:27 PM * Full Code Date Activated Date Inactivated Comments 07/28/2019 3:16 PM 07/28/2019 3:43 PM * Full Code Date Activated Date Inactivated Comments 07/28/2019 10:23 AM 07/28/2019 3:16 PM Care Teams 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
[2025-02-17 16:54] LABS: Anion Gap 10 mmol/L (4-12); Blood Urea Nitrogen 11 mg/dL (7-17); Calcium 9.4 mg/dL (8.4-10.2); Carbon Dioxide 29 mmol/L (22-30); Chloride 98 mmol/L (98-107); Estimated Glomerular Filt Rate > 60; Glucose 91 mg/dL (65-110); Magnesium 2.2 mg/dL (1.6-2.3); Potassium 3.4 mmol/L (3.4-5.0); Sodium 137 mmol/L (137-145)
== END 2025-02-17 15:56 | disposition home or self-care (01) ==
LOC: ANHLAB 15:56
PROVIDERS: PCP Family Medicine; Visit Provider Family Medicine
DX: E87.6 Hypokalemia (principal)
CPT/HCPCS: 36415; 80048; 83735

== ENCOUNTER 2025-03-14 08:53 | Outpatient (CLI) | payer OTHER, SELFPAY ==
--- NOTE | ~2025-03-14 | US_ITS ---
EXAMINATION: US retroperitoneal duplex ltd DATE: 03/14/2025 09:19 INDICATION: Labile blood pressure TECHNIQUE: Multiple grayscale, color Doppler, and pulsed Doppler images of the kidneys and renal diego chica were obtained. COMPARISON: None. FINDINGS: The aorta peak systolic velocity is 141 cm/s. The right renal artery peak systolic velocity is 109 cm /s in the proximal segment, 137 cm/s in the mid segment, and 130 cm/s in the distal segment. The left renal artery peak systolic velocity is 98 cm/s in the proximal segment, 89 cm/s in the mid segment, and 85 cm/s in the distal segment. IMPRESSION: 1. No Doppler evidence of renal artery stenosis. Reviewed, dictated and finalized at location A.
== END 2025-03-14 08:54 | disposition home or self-care (01) ==
LOC: MICIMG 08:54
PROVIDERS: PCP Family Medicine; Visit Provider Family Medicine
DX: R09.89 Other specified symptoms and signs involving the circulatory and respiratory systems (principal)
CPT/HCPCS: 93976